=== PATIENT | male | born 1995 | race African-American/Black ===

== ENCOUNTER 2019-02-17 10:25 | Emergency (ER) | payer BC, OTHER, SELFPAY ==
[2019-02-17] MEDS ORDERED: Ondansetron ODT 4 MG TAB ONE (11:34)
== END 2019-02-17 11:40 | disposition home or self-care (01) ==
LOC: MADERS 10:25
DX: K52.9 Noninfective gastroenteritis and colitis, unspecified (principal)
CPT/HCPCS: 99283; Q0162